=== PATIENT | male | born 1950 | race Caucasian/White ===

== ENCOUNTER → 2018-01-24 | Outpatient (CLI) | payer MEDICARE, BC ==
[~2018-01-24] MED LIST: ASPIRIN 81M81 MG/TA2 PO; FISH OIL1000 MG PO; LIPITOR 10MG10 MG PO; NATURAL E400 IU PO; NORCO 325 MG-7.1 TAB PO; ZANTAC 150MG T150 MG PO
== END ==
LOC: COL.RAD 09:16
DX: D69.6 Thrombocytopenia, unspecified (principal)